=== PATIENT | male | born 1990 | race African-American/Black ===

== ENCOUNTER 2016-09-05 14:08 | Emergency (ER) | payer MEDICAID ==
[~2016-09-05] VITALS: Ht 172.7 cm; Wt 75.0 kg
[2016-09-05] MEDS ORDERED: KETOROLAC 60MG/2ML VIAL IM ONE (14:45)
[2016-09-05 14:51] VITALS: BP 123/66
== END 2016-09-05 15:36 | disposition home or self-care (01) ==
LOC: ER 15:16
DX: K08.89 Other specified disorders of teeth and supporting structures (principal); F17.210 Nicotine dependence, cigarettes, uncomplicated
CPT/HCPCS: 96372; 99283; J1885

== ENCOUNTER 2016-11-14 08:00 | Emergency (ER) | payer MEDICAID ==
[~2016-11-14] VITALS: Ht 170.2 cm; Wt 70.0 kg
[2016-11-14 08:04] VITALS: BP 130/70
== END 2016-11-14 12:41 | disposition left against medical advice (07) ==
LOC: ER 08:10
DX: F41.0 Panic disorder [episodic paroxysmal anxiety] (principal); Z53.21 Procedure and treatment not carried out due to patient leaving prior to being seen by health care provider